=== PATIENT | male | born 1960 | race Caucasian/White ===

== ENCOUNTER 2017-02-13 11:33 | Emergency (ER) | payer BC ==
--- NOTE | 2017-02-13 12:05 | Emergency Department Record ---
History of Present Illness - General Chief complaint: Swelling of legs Stated complaint: SWELLING IN LEGS Time Seen by Provider: 02/13/17 11:36 Source: Patient Mode of Arrival: Ambulatory Limitations: No limitations - History of Present Illness Initial comments: 57 yo male presents to ED with a CC of progressively worsening bilateral lower extremity swelling from ankle to mid-lower leg. Patient denies history of previous symptoms, and denies history of DVT/CHF. Patient denies calf pain or difficulty breathing/chest pain symptoms. Patient reports history of HTN, denies other heart or lung problems. 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 MD Complaint: Extremity swelling Onset/Timin -: Week(s) Location: Bilateral, Ankle, Lower Leg History of Same: No Severity scale (1-10): 8 Quality: Aching Consistency: Constant Worsens with: Exertion, Weight bearing - Related Data Previous Rx's Medication Instructions Recorded Furosemide [Lasix] 20 mg PO DAILY #10 tablet 02/13/17 Allergies Allergy/AdvReac Type Severity Reaction Status Date / Time acetaminophen AdvReac NAUSEA Verified 02/13/17 11:47 [From Darvocet-N] meperidine [From Demerol] AdvReac NAUSEA Verified 02/13/17 11:47 propoxyphene AdvReac NAUSEA Verified 02/13/17 11:47 [From Darvocet-N] Travel Screening - Travel/Exposure Within Last 30 Days Have you traveled within the last 30 days?: Yes Location Detail:: [place] - Travel/Exposure Within Last Year Have you traveled outside the [place] in the last year?: No - Additonal Travel Details Have you been exposed to anyone with a communicable illness?: No - Travel Symptoms Symptom Screening: None Review of Systems Constitutional: Denies: Chills, Fever, Malaise, Night sweats Eyes: Denies: Eye discharge, Eye pain ENT: Denies: Congestion, Ear pain, Epistaxis Respiratory: Denies: Cough, Dyspnea Cardiovascular: Reports: Edema. Denies: Chest pain, Dyspnea on exertion Endocrine: Denies: Fatigue, Heat or cold intolerance Gastrointestinal: Denies: Abdominal pain, Nausea, Vomiting Musculoskeletal: Denies: Arthralgia, Back pain, Gout, Joint swelling Skin: Denies: Bruising, Change in color Neurological: Denies: Abnormal gait, Confusion, Headache, Seizure Psychiatric: Denies: Anxiety Hematological/Lymphatic: Denies: Anemia, Blood Clots Past Medical History - SOCIAL HISTORY Smoking Status: Former smoker Alcohol Use: Occassional Drug Use: None - RESPIRATORY Hx Respiratory Disorders: No - CARDIOVASCULAR Hx Cardio Disorders: No - NEURO Hx Neuro Disorders: No - GI Hx GI Disorders: Yes Hx Diverticulitis: Yes - Hx Genitourinary Disorders: Yes Hx Kidney Stones: Yes Hx Prostate Problems: Yes (removed) - ENDOCRINE Hx Endocrine Disorders: No - MUSCULOSKELETAL Hx Musculoskeletal Disorders: Yes Hx Arthritis: Yes - PSYCH Hx Psych Problems: No - HEMATOLOGY/ONCOLOGY Hx Hematology/Oncology Disorders: Yes Hx Cancer: Yes (prostate) Hx Chemotherapy: No Hx Radiation Therapy: No Family Medical History Any Significant Family History?: No Physical Exam - General General Appearance: Alert, Oriented x3, Cooperative, No acute distress Limitations: No limitations - Head Head exam: Atraumatic, Normocephalic, Normal inspection Head exam detail: negative: Abrasion, Contusion, Jung's sign, General tenderness, Hematoma, Laceration - Eye Eye exam: Normal appearance. negative: Conjunctival injection, Periorbital swelling, Periorbital tenderness, Scleral icterus - ENT Ear exam: negative: Auricular hematoma, Auricular trauma Nasal Exam: negative: Active bleeding, Discharge, Dried blood, Foreign body Mouth exam: negative: Drooling, Laceration, Muffled voice, Tongue elevation - Neck Neck exam: Normal inspection. negative: Meningismus, Tenderness - Respiratory Respiratory exam: Normal lung sounds bilaterally. negative: Rales, Respiratory distress, Rhonchi, Stridor - Cardiovascular Cardiovascular Exam: Regular rate, Normal rhythm, Normal heart sounds - GI/Abdominal GI/Abdominal exam: Soft. negative: Rebound, Rigid, Tenderness - Rectal Rectal exam: Deferred - exam: Deferred - Extremities Extremities exam: Normal inspection, Pedal edema, Other (Mild TTP to the anterior lower extremities due to edema). negative: Calf tenderness, Tenderness - Back Back exam: Denies: CVA tenderness (R), CVA tenderness (L) - Neurological Neurological exam: Alert, Normal gait, Oriented X3 - Psychiatric Psychiatric exam: Normal affect, Normal mood - Skin Skin exam: Normal color. negative: Abrasion Type of lesion: negative: abrasion Course Vital Signs 02/13/17 11:36 Temperature 99.3 F Pulse Rate 100 H Respiratory 16 Rate Blood Pressure 161/83 Pulse Ox 96 - Reevaluation(s) Reevaluation #1: 02/13/17 12:03 Patient seen and examined, no clinical evidence for DVT. Will evaluate for possible CHF vs. renal impairment and reassess. Reevaluation #2: 02/13/17 12:18 EKG: NSR 91 Normal axis, normal intervals T wave inversions V3-V6, nonspecific ST-T waves II, III, AVF Reevaluation #3: 02/13/17 12:43 Labs reviewed and are grossly unremarkable for an acute process. Discussed treatment options with the patient including a low-dose of Lasix for his peripheral edema, will prescribe 10 days worth of medication with instructions for follow-up with his PCP in 5-7 days. Patient appears stable for discharge at this time. Medical Decision Making - Lab Data Result diagrams: 02/13/17 12:12 02/13/17 12:12 Disposition Disposition: Discharge Clinical Impression: Peripheral edema Disposition: Home, Self-Care Condition: (2) Stable Instructions: Leg Edema (ED) Additional Instructions: Return to ED if your symptoms worsen or if you have any concerns. Lasix as directed. Follow-up with your family doctor in 5-7 days as directed. Prescriptions: Furosemide [Lasix] 20 mg PO DAILY #10 tablet Forms: Patient Portal Access Time of Disposition: 12:47
[2017-02-13 12:22] LABS: BASO % 0.2 % (0-6); EOS % 1.2 % (0-6); GRAN % 76.7 % (47-80); HEMATOCRIT 44.9 % (42.0-52.0); HEMOGLOBIN 14.6 gm/dl (14.0-18.0); LYMPH % 10.8 % (16-45); MEAN CELL VOLUME 87.9 fl (81-97); MEAN CORPUSCULAR HEMOGLOBIN 28.6 pg (27-33); MEAN CORPUSCULAR HGB CONC 32.5 g/dl (32-36); MEAN PLATELET VOLUME 10.9 fl (7.4-10.4); MONO % 11.1 % (0-9); PLATELET COUNT 225 K/uL (130-400); RED BLOOD COUNT 5.11 M/uL (4.40-5.70); RED CELL DISTRIBUTION WIDTH 14.6 % (11.5-14.5); WHITE BLOOD COUNT W/O DIFF 10.5 K/uL (4.2-12.2)
[2017-02-13 12:31] LABS: ALB/GLOB RATIO 1.5 (1.1-1.8); ALBUMIN 4.4 gm/dL (3.5-5.0); ALKALINE PHOSPHATASE 90 U/L (38-126); ALT/SGPT 31 U/L (21-72); ANION GAP 6.4 (7-16); AST/SGOT 21 U/L (17-59); BILIRUBIN,TOTAL 0.84 mg/dL (0.2-1.3); BLOOD UREA NITROGEN 21 mg/dL (9-20); CARBON DIOXIDE 24.6 mmol/L (22-30); CREATININE 0.8 mg/dL (0.66-1.25); EST GLOMERULAR FILTRATION RATE > 60 ml/min; GLUCOSE,RANDOM 107 mg/dL (70-110); TOTAL PROTEIN 7.4 gm/dL (6.3-8.2)
[2017-02-13] MEDS: FUROSEMIDE 20 MG TABLET PO ONE (12:58)
== END 2017-02-13 13:06 | disposition home or self-care (01) ==
LOC: ER 11:33
DX: R60.0 Localized edema (principal); I10 Essential (primary) hypertension; M79.662 Pain in left lower leg; M79.661 Pain in right lower leg; Z87.891 Personal history of nicotine dependence
CPT/HCPCS: 80053; 83880; 85025; 93005; 93010; 99284

== ENCOUNTER 2017-07-27 16:27 | Emergency (ER) | payer BC ==
--- NOTE | 2017-07-27 16:42 | Emergency Department Record ---
History of Present Illness - General Chief Complaint: Abdominal Pain Stated Complaint: ABD PAIN Time Seen by Provider: 07/27/17 16:31 Source: Patient Mode of Arrival: Ambulatory - History of Present Illness Initial Comments: The patient is here due to dark black stools for 2 days associated with R sided abdominal aching. He denies any fever, chills, nausea, or vomiting, but has had 6-7 black stools daily for the last 2 days. The patient has had Diverticulitis with similar pain but never the black stools. He has been taking Ibuprofen daily for the last 5 months due to a chronic knee condition. MD Complaint: Abdominal pain Onset/Timin -: Days(s) Location: RUQ, RLQ Radiation: None Migration to: No migration Quality: Aching Consistency: Constant Improves With: Nothing Worsens With: Nothing Associated Symptoms: Chills, Fever, Melena, Vomiting - Related Data Allergies Allergy/AdvReac Type Severity Reaction Status Date / Time acetaminophen AdvReac NAUSEA Verified 07/27/17 16:33 [From Darvocet-N] meperidine [From Demerol] AdvReac NAUSEA Verified 07/27/17 16:33 propoxyphene AdvReac NAUSEA Verified 07/27/17 16:33 [From Darvocet-N] Travel Screening - Travel/Exposure Within Last 30 Days Have you traveled within the last 30 days?: No Review of Systems Constitutional: Denies: Chills, Fever Eyes: Denies: Eye discharge ENT: Denies: Congestion Respiratory: Denies: Cough, Dyspnea Past Medical History - SOCIAL HISTORY Smoking Status: Former smoker Alcohol Use: Rare Drug Use: None - RESPIRATORY Hx Respiratory Disorders: No - CARDIOVASCULAR Hx Cardio Disorders: Yes Hx Edema: Yes Hx Hypertension: Yes - NEURO Hx Neuro Disorders: No - GI Hx GI Disorders: Yes Hx Diverticulitis: Yes - Hx Genitourinary Disorders: Yes Hx Kidney Stones: Yes Hx Prostate Problems: Yes (removed) - ENDOCRINE Hx Endocrine Disorders: No - MUSCULOSKELETAL Hx Musculoskeletal Disorders: Yes Hx Arthritis: Yes - PSYCH Hx Psych Problems: No - HEMATOLOGY/ONCOLOGY Hx Hematology/Oncology Disorders: Yes Hx Cancer: Yes (prostate) Hx Chemotherapy: No Hx Radiation Therapy: No Family Medical History Any Significant Family History?: No Physical Exam - General General Appearance: Alert, Oriented x3, Cooperative, No acute distress - Head Head exam: Atraumatic, Normocephalic, Normal inspection - Eye Eye exam: Normal appearance, PERRL - ENT Throat exam: Normal inspection. negative: Tonsillar erythema, Tonsillar exudate - Neck Neck exam: Normal inspection, Full ROM. negative: Tenderness - Respiratory Respiratory exam: Normal lung sounds bilaterally. negative: Respiratory distress - Cardiovascular Cardiovascular Exam: Regular rate, Normal rhythm, Normal heart sounds - GI/Abdominal GI/Abdominal exam: Soft, Normal bowel sounds. negative: Distended, Rebound, Rigid, Tenderness - Rectal Rectal exam: Black stool, Heme (+) stool - Extremities Extremities exam: Normal inspection, Full ROM, Normal capillary refill. negative: Tenderness - Neurological Neurological exam: Alert. negative: Motor sensory deficit Course Vital Signs 07/27/17 16:36 Temperature 99.3 F Pulse Rate 109 H Respiratory 20 Rate Blood Pressure 141/93 Pulse Ox 98 - Reevaluation(s) Reevaluation #1: The patient is doing very well at this time. He denies any new pain or discomfort. I did explain to him that I feel that he has an UGI bleed and will need to be transferred to a larger hospital. The patient would like to go to [facility] so we will make the arrangements. 07/27/17 17:58 Reevaluation #2: The patient is doing very well at this time. He is very hemodynamically stable. I did discuss the case with Dr. Bustamante at [facility] and he does accept the patient to the hospital. I did offer the patient an ambulance ride but he is refusing. He would like to drive. 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 07/27/17 18:51 Medical Decision Making - Data Complexity MDM Data: Labs Ordered and/or Reviewed, X-Ray Ordered and/or Reviewed - Lab Data Result diagrams: 07/27/17 16:55 07/27/17 16:55 - Radiology Data Radiology results: Report reviewed (Abd CT: Colonic diverticulosis but no diverticulitis. Normal appendix.) Disposition Disposition: Transfer Clinical Impression: Upper GI hemorrhage Disposition: Acute Care Hospital Transfer Transfer To: [facility] Reason For Transfer: Gi Bleed. Accepting Physician: Dianna Time Discussed w/Accepting Physician: 18:54 Condition: (2) Stable Instructions: Gastrointestinal Bleeding (ED) Additional Instructions: Please drive directly over to [facility] for admission. Forms: Patient Portal Access Time of Disposition: 18:15 Quality - Quality Measures Quality Measures: N/A - Blood Pressure Screening View Details: Yes Does Patient Have Any of the Following: No Blood Pressure Classification: Hypertensive Reading Systolic Measurement: 141 Diastolic Measurement: 93 Screening for High Blood Pressure: < Pre-Hypertensive BP, F/U Documented > [ [id number]] Pre-Hypertensive Follow-up Interventions: Referral to alternative/primary care provider.
[2017-07-27 17:07] LABS: BASO % 0.3 % (0-6); EOS % 0.5 % (0-6); GRAN % 61.5 % (47-80); HEMATOCRIT 33.6 % (42.0-52.0); HEMOGLOBIN 10.7 gm/dl (14.0-18.0); LYMPH % 28.1 % (16-45); MEAN CELL VOLUME 84.8 fl (81-97); MEAN CORPUSCULAR HGB CONC 31.8 g/dl (32-36); MEAN PLATELET VOLUME 10.5 fl (7.4-10.4); MONO % 9.6 % (0-9); PLATELET COUNT 318 K/uL (130-400); RED BLOOD COUNT 3.96 M/uL (4.40-5.70); RED CELL DISTRIBUTION WIDTH 14.9 % (11.5-14.5); URINE APPEARANCE SL CLOUDY; URINE BILIRUBIN NEGATIVE (NEGATIVE); URINE BLOOD NEGATIVE (NEGATIVE); URINE COLOR YELLOW; URINE GLUCOSE (UA) NEGATIVE (NEGATIVE); URINE KETONE NEGATIVE (NEGATIVE); URINE LEUKOCYTE ESTERASE NEGATIVE (NEGATIVE); URINE NITRITE NEGATIVE (NEGATIVE); URINE PROTEIN NEGATIVE (NEGATIVE); URINE UROBILINOGEN 0.2 E.U./dL (0.20 - 1.00); WHITE BLOOD COUNT W/O DIFF 14.8 K/uL (4.2-12.2)
[2017-07-27 17:20] LABS: INR 0.98; PARTIAL THROMBOPLASTIN TIME 23.7 SECONDS (24.5-39.1); PROTHROMBIN TIME (PATIENT) 10.6 SECONDS (9.5-12.1)
[2017-07-27 17:23] LABS: ALBUMIN 4.2 g/dL (4.0-5.0); ALKALINE PHOSPHATASE 66 U/L (40-129); ALT/SGPT 15 U/L (<41); AST/SGOT 12 U/L (10.0-50.0); BLOOD UREA NITROGEN 32 mg/dL (6-20); CREATININE 0.7 mg/dL (0.7-1.2); EST GLOMERULAR FILTRATION RATE > 60 mL/min; GLUCOSE,RANDOM 113 mg/dL (74-109); LIPASE 36 U/L (13-60); TOTAL PROTEIN 6.9 g/dL (6.6-8.7)
[2017-07-27 17:27] LABS: BILIRUBIN,DIRECT < 0.2 mg/dL (0-0.3)
[2017-07-27] MEDS: SODIUM CHLORIDE 0.9% 500 ML IV ONE (17:39)
[2017-07-27] MEDS: PANTOPRAZOLE SODIUM IV 40 MG VIAL IVP ONE (17:39)
[2017-07-27] MEDS: ONDANSETRON HCL IV 4 MG/2 ML VIAL IVP ONE (18:55)
[2017-07-27] MEDS: MORPHINE SULFATE 5 MG/ML PFS IVP ONE (18:55)
--- NOTE | 2017-07-29 10:24 | CT SCAN REPORT ---
EXAM: CT SCAN ABDOMEN/PELVIS WO CONTRAST HISTORY: HEMATOCHEZIA. TECHNIQUE: Sequential axial images were obtained from the diaphragms through the ischiorectal fossa without intravenous or oral contrast administration. FINDINGS: There is a calcified granuloma in the right lung base. The non- opacified liver, gallbladder, pancreas, and spleen appear normal. The adrenal glands appear normal. There are no CT findings suggestive of obstructive uropathy. There is a small nonobstructing calculus in the right kidney. The small bowel appears normal. The appendix is visualized and appears normal. There is colonic diverticulosis without evidence of diverticulitis. There is mild atheromatous change of the abdominal aorta. There is a fat-containing left inguinal hernia. There is degenerative change of the lumbar spine. IMPRESSION: 1. NO CT FINDINGS SUGGESTIVE OF OBSTRUCTIVE UROPATHY. THE APPENDIX IS VISUALIZED AND APPEARS NORMAL. 2. FAT-CONTAINING LEFT INGUINAL HERNIA. 3. COLONIC DIVERTICULOSIS WITHOUT EVIDENCE OF DIVERTICULITIS. JOB NUMBER: [id number] MTDD
== END 2017-07-27 19:57 | disposition short-term general hospital (02) ==
LOC: ER 16:27
DX: K92.1 Melena (principal); R11.11 Vomiting without nausea; R10.84 Generalized abdominal pain; I10 Essential (primary) hypertension; Z87.891 Personal history of nicotine dependence
CPT/HCPCS: 99285 ×2; 96374; 96375; 96361; 83690; 85025; 85730; 85610; 80076; 80048; 81003; 74176; J2405; J2270; C9113

== ENCOUNTER 2017-08-30 05:51 | Inpatient (IN) | payer BC ==
[2017-08-30] MEDS ORDERED: MECLIZINE 25 MG TABLET PO ONE (06:00)
[2017-08-30] MEDS ORDERED: FAMOTIDINE 20MG TABLET PO ONE (06:00)
[2017-08-30] MEDS ORDERED: CEFAZOLIN 2 Gram 2 GM/50 ML BAG IVPB ONE (06:00)
[2017-08-30] MEDS ORDERED: ACETAMINOPHEN 1,000 MG/100 ML BTL IV ONE (06:00)
[2017-08-30] MEDS ORDERED: METOCLOPRAMIDE 10 MG TABLET PO ONE (06:00)
[2017-08-30] MEDS ORDERED: MAGNESIUM HYDROXIDE 30 ML UDC PO PRN (10:30)
[2017-08-30] MEDS ORDERED: ZOLPIDEM TARTRATE 5 MG TABLET PO PRN (10:30)
[2017-08-30] MEDS ORDERED: ONDANSETRON HCL IV 4 MG/2 ML VIAL IVP PRN (10:30)
[2017-08-30] MEDS ORDERED: SENNOSIDES/DOCUSATE SODIUM UD CAPSULE PO PRN (10:30)
[2017-08-30] MEDS ORDERED: METOCLOPRAMIDE HCL 10 MG/2 ML VIAL IVP PRN (10:30)
[2017-08-30] MEDS ORDERED: AL HYDROX/MAG HYDROX 30ML UD PO PRN (10:30)
[2017-08-30] MEDS ORDERED: DIPHENHYDRAMINE HCL 25 MG CAPSULE PO PRN (10:30)
[2017-08-30] MEDS ORDERED: TRAMADOL HCL 50 MG TABLET PO PRN (10:30)
[2017-08-30] MEDS ORDERED: RINGERS SOLUTION,LACTATED 1,000 ML IV PRN (11:11)
[2017-08-30] MEDS ORDERED: TRANEXAMIC ACID 1,000 MG in 0.9 % SODIUM CHLORIDE 100ML 100 ML IVPB ONE (12:00)
[2017-08-30] MEDS: TRAMADOL HCL 50 MG TABLET PO PRN ×2 (12:22→23:55)
--- NOTE | 2017-08-30 13:00 | Operative Note ---
DATE OF SURGERY: 08/30/2017 Surgeon: Arcadio Lutz DO PREOPERATIVE DIAGNOSIS: Secondary osteoarthritis of the left knee. POSTOPERATIVE DIAGNOSIS: Secondary osteoarthritis of the left knee. OPERATION: Left total knee arthroplasty. DESCRIPTION OF PROCEDURE: This 57-year-old male was taken to the operating room and placed in the supine position on the operating room table. A spinal anesthetic was administered. The left lower extremity was elevated. It was prepped with Hibiclens and draped in the usual sterile fashion. Exsanguinated and the tourniquet inflated to 300 mmHg. All scrub personnel wore personal isolation suits. An anterior longitudinal midline incision was made followed by a medial parapatellar arthrotomy incision. An intracondylar drill hole was made for the intramedullary alignment reyna and a 6-degree valgus 9 mm cut was made in the distal femur. Sizing jig was affixed a size between a 70 and a 72. We elected to go with a size 70 which was seen to be the appropriate size. The 4-in-1 cutting block was pinned in 3 degrees of external rotation. The appropriate cuts were made. We did not encounter the metallic hardware in the femur. Subsequently, we directed our attention to the proximal tibia, and an extramedullary alignment guide was used to cut the proximal tibia referencing a 10 mm cut off the lateral tibial plateau. However, this was seen to be significantly short of where we needed to be in terms of the amount of bone removal. We ended up taking an additional 4 mm. This gave us the appropriate size and once the appropriate rotation had been assured, a 3-degree posterior slope cut was made and the wafer of bone was removed. Remnants of the menisci and osteophytes were removed from the posterior aspect of the joint. We placed a metallic device down the hole where we could see that the ACL graft had been placed. The fatty tissue was dug out of this hole to healthy appearing bone and we really could not see the screw. Subsequently, the sizing jig was affixed and the center punch was used. This was hit very lightly for fear of encountering the screw but it went down very easily and the screw could be seen at the bottom of the punched tibia. We felt that it was not necessary to remove this screw, and the wound was copiously irrigated with pulse lavage, lactated Ringer's solution and all debris removed. Exparel was injected into the posterior, medial, and lateral corners of the joint. The patella was cut and restored to anatomic height with a 37 x 10 mm patella, and the remainder of the trial components were also inserted, and an 11 mm bearing was seen to be the appropriate size. This gave us good stability throughout the range of motion. All trial components were then removed and the wound copiously irrigated with lactated Ringer's solution. All bony surfaces were dried. All components were cemented and excess cement was removed after the insertion of each component. Initially the tibial baseplate was cemented into place with no difficulties followed by the insertion of the tibial bearing. The femur was then cemented and subsequently the patella. Once the cement had hardened, the knee was again taken through range of motion and felt to be stable. The remainder of the Exparel was injected into the periosteum and joint capsule, the proximal tibia and distal femur. A drain was placed through a separate stab incision, and the arthrotomy incision was closed with a #2 Vicryl. The subcutaneous tissue was closed with 0 Vicryl and the skin was stapled. Sterile dressings applied with a Polar pack. The patient was taken to the recovery room in satisfactory condition. GROSS PATHOLOGY: This patient demonstrated advanced medial compartment osteoarthritis with some bone loss noted on the medial tibial plateau with full-thickness articular cartilage loss on the patella. There was also a loose joint body encased in synovium on the medial side of the joint in the gutter. Final components inserted were a [employer] size 70 cruciate retaining femur, a 75 mm tibia, 11 mm anterior stabilized D1 bearing, and a 27 x 10 mm patella was used. [place]AG
[2017-08-30] MEDS: ACETAMINOPHEN 1,000 MG/100 ML BTL IV SCH ×2 (13:07→18:32)
--- NOTE | 2017-08-30 13:58 | Rehab Evaluation ---
Patient Information - Patient Information Diagnosis: OA left knee Ordered Treatment: PT Evaluate and Treat Status: Initial Evaluation Surgery: Yes (TKA left) Date of Surgery: 08/30/17 Past Medical/Surgical Hx: PAST MEDICAL/SURGICAL HISTORY Past Surgical History prostate Bl knee surgery tonsils wisdom teeth kidney stones-lipotrypsy right knee replacement PMH - Respiratory Hx Respiratory Disorders No PMH - Cardiovascular Hx Cardiovascular Disorders Yes Hx Edema Yes Hx Hypertension Yes Exercise Tolerance Good PMH - Neuro Hx Neurological Disorders No PMH - GI Hx Gastrointestinal Disorders Yes Hx Diverticulitis Yes Hx Ulcer Yes: 3 weeks ago bleeding PMH - Hx Genitourinary Disorders Yes Hx Bladder Problem Yes: some leaking Hx Kidney Stones Yes Hx Prostate Problems Yes: removed PMH - Endocrine Hx Endocrine Disorders No Hx Diabetes No Hx Thyroid Disease No PMH - Musculoskeletal Hx Musculoskeletal Disorders Yes Hx Arthritis Yes Comment: prev rt knee replacement PMH - Psych Hx Psychiatric Problems No PMH - Hematology/Oncology Hx Hematology/Oncology Yes Disorders Hx Cancer Yes: prostate Hx Chemotherapy No Hx Radiation Therapy No Social History: Detail (Lives in house with two fairly high steps to get into house, no rail. Has good bathroom set-up from previous knee replacement earlier this year. Has four-wheeled walker and should be able to get into shower. Has significant other to help him at home.) Precautions: [place], Fall - Time With Patient Total Time Spent With Patient (Min): 30 Treatment Procedures: Detail (Patient seen in room, still a little woozy and ate some lunch but mostly liquid. Removed cryocuff, compressive stockings, CPM from bed and patient able to help lift leg. Patient able to do some of knee exercises to increase flexibility before sat up. Able to move supine to sit with very little assist with left LE, sat edge of bed for several minutes to clear head then sit to stand with FWW and min assist, WBAT left LE and did weight shift, stepped sideways to head of bed. Able to sit down with verbal cues to slide leg out in front and use bed rail for support. Into bed with min assist with left LE, re-attached cryocuff, CPM, compressive stockings. Left call light close and tray table within reach with drink.) Subjective Information - Subjective Information Per Patient (As above lives in house with two high steps to get into house and last surgery, had to use crutches to get into house.) Objective Data - Pain Pain Present: Yes Pain Scale Used: Numeric (1 - 10) (4/10) - Mental Status Patient Orientation: Oriented x3 - Visual Perception Appears within normal limits for therapeutic activities - ROM Within normal limits (except knee -10 degrees extension, flexion 60 degrees.) - Strength/Tone Within normal limits (Quads 3-/5, hamstrings 4/5, left hip 3+/5) - Coordination Appears within normal limits for therapeutic activities (A little decreased at this time secondary to surgery.) - Bed Mobility Needs Assist (Needs min assist to move supine to sit and sit to supine.) - Transfers Needs Assist (Sit to stand good with FWW, stand to sit WFL, did not move to chair yet or walk yet.) - Balance Balance Sitting: Good Balance Standing: Good - Sensation Deficit (Not fully returned since surgery.) - Gait Detail (Only able to try two to three steps sidestepping at side of bed today secondary to does not have full sensation back yet. Used FWW and able to WBAT left LE.) Therapy Assessment - Therapy Assessment Detail (Patient doing quite well with knee so far, not nauseated this afternoon and able to tolerate being up briefly. Exercises cause a little more discomfort but able to assist.) Patient Education - Patient Education Teaching Topic: Equipment Use, Exercise/Activity Response: Return Demonstration Teaching Method: Demonstration Teaching Recipient: Patient, Significant Other Barriers To Learning: None Problem List - Problem List Physical Therapy Problem List: Detail (1. Decreased functional mobility and gait. 2. Decreased ROM left knee to functional degree. 3. Unable to do stairs yet to get into house.) Goals - Goals Physical Therapy Goals: Patient will be able to ambulate community distances, mobilize self into and out of bed, step up and down three steps with appropriate assistive device and assistance, increase ROM of knee to more functional before discharge home with significant other. Prognosis - Prognosis Good (Should do well as gets meds under control for pain and practices mobility , gait and stairs.) Plan - Plan Physical Therapy Plan: Continue PT BID tomorrow to prepare for going home with exercises, gait training, stairs with appropriate assistive device so able to get up stairs at home before discharge day after surgery or if needed, next am.
[2017-08-30] MEDS ORDERED: BUPIVACAINE 0.75% W/EPI MPF 30ML VIAL IVP ONE (15:00)
[2017-08-30] MEDS ORDERED: TRANEXAMIC ACID 1,000 MG/10 ML ML IV ONE (15:00)
[2017-08-30] MEDS ORDERED: BUPIVACAINE LIPOSOME 266MG/20ML VIAL IV ONE (15:00)
[2017-08-30] MEDS ORDERED: FENTANYL PF 100MCG/2ML VIAL IV ONE (15:22)
[2017-08-30] MEDS ORDERED: *PACU ONLY* KETAMINE HCL 10 MG/ML (20ML) VIAL IV ONE (15:22)
[2017-08-30] MEDS ORDERED: MIDAZOLAM HCL 2MG/2ML VIAL IV ONE (15:22)
[2017-08-30] MEDS ORDERED: PROPOFOL 10 MG/ML VIAL IV ONE (15:22)
[2017-08-30] MEDS ORDERED: HYDROMORPHONE HCL 2 MG/ML VIAL IV ONE (15:22)
[2017-08-30] MEDS: CEFAZOLIN 2 Gram 2 GM/50 ML BAG IVPB SCH ×2 (15:58→23:55)
[2017-08-30] MEDS: OXYCODONE HCL 5 MG TABLET PO PRN ×2 (17:13→21:17)
[2017-08-30] MEDS: ASPIRIN 325 MG TAB ENTERIC-COATED PO SCH (21:18)
[2017-08-31] MEDS: OXYCODONE HCL 5 MG TABLET PO PRN ×3 (01:14→09:28)
[2017-08-31] MEDS: ACETAMINOPHEN 1,000 MG/100 ML BTL IV SCH (01:15)
[2017-08-31] MEDS: RINGERS SOLUTION,LACTATED 1,000 ML IV SCH ×2 (01:51→03:12)
[2017-08-31] MEDS: HYDROMORPHONE HCL 1 MG/ML CPJ IVP PRN ×2 (05:57→06:55)
[2017-08-31 06:57] LABS: HEMATOCRIT 27.8 % (42.0-52.0); HEMOGLOBIN 8.2 gm/dl (14.0-18.0); MEAN CORPUSCULAR HGB CONC 29.5 g/dl (32-36); MEAN PLATELET VOLUME 10.4 fl (7.4-10.4); PLATELET COUNT 338 K/uL (130-400); RED BLOOD COUNT 3.35 M/uL (4.40-5.70); RED CELL DISTRIBUTION WIDTH 15.6 % (11.5-14.5); WHITE BLOOD COUNT W/O DIFF 13.4 K/uL (4.2-12.2)
[2017-08-31] MEDS: CEFAZOLIN 2 Gram 2 GM/50 ML BAG IVPB SCH (06:58)
[2017-08-31 07:02] LABS: MEAN CORPUSCULAR HEMOGLOBIN 24.4 pg (27-33)
[2017-08-31] MEDS: ASPIRIN 325 MG TAB ENTERIC-COATED PO SCH (09:29)
[2017-08-31] MEDS ORDERED: FUROSEMIDE 20 MG TABLET PO SCH (10:00)
[2017-08-31] MEDS ORDERED: LISINOPRIL 20 MG TABLET PO SCH (10:00)
[2017-08-31] MEDS ORDERED: OXYCODONE/APAP 7.5MG/325MG TABLET PO PRN (10:30)
[2017-08-31] MEDS ORDERED: ACETAMINOPHEN 325 MG TAB PO PRN (10:30)
[2017-08-31] MEDS ORDERED: HYDROCODONE/APAP 7.5/325MG TABLET PO PRN (10:30)
--- NOTE | 2017-08-31 10:49 | Physical Therapy Tx Note ---
Physical Therapy Tx Note - Treatment Note Tolerated: Good (Patient had a horrible night: pain and drain leaked, CPM hurting. Feeling a little better now with pain meds but pain level still 5/10. Willing to get up and walk but not sure about steps yet. Able to ambulate about 70 feet to nurses station and back to room with standing rest breaks.) Total Time Spent With Patient: 30 Physical Therapy Tx Note: Detail (Patient seen in room, sitting up in chair so did knee exercises sitting with hip lift and knee bending, straightening, ankle pumps then sit to stand with FWW, CGA then ambulated into wang to nurses' station (about 70 feet) then back to room WBAT left LE. Into bed with some assist with left LE. Replaced patient in CPM, cryocuff on knee. Did not replace compressive stockings since OT coming to work with patient soon. Call light close, tray table close and refreshed water cup.) Physical Therapy Problem List: Detail (1. Decreased functional mobility and gait. 2. Decreased ROM left knee to functional degree. 3. Unable to do stairs yet to get into house.) Physical Therapy Goals: Patient will be able to ambulate community distances, mobilize self into and out of bed, step up and down three steps with appropriate assistive device and assistance, increase ROM of knee to more functional before discharge home with significant other. Prognosis: Good (Doing a little better this am with mobility and gait but pain higher and not able to lift leg in SLR yet. Will try crutches this afternoon for stairs.) Physical Therapy Plan: Continue PT BID tomorrow to prepare for going home with exercises, gait training, stairs with appropriate assistive device so able to get up stairs at home before discharge day after surgery or if needed, next am.
--- NOTE | 2017-08-31 12:31 | Rehab Evaluation ---
Patient Information - Patient Information Diagnosis: OA left knee Ordered Treatment: OT Evaluate and Treat Status: Initial Evaluation Surgery: Yes (TKA left) Date of Surgery: 08/30/17 Past Medical/Surgical Hx: PAST MEDICAL/SURGICAL HISTORY Past Surgical History prostate Bl knee surgery tonsils wisdom teeth kidney stones-lipotrypsy right knee replacement PMH - Respiratory Hx Respiratory Disorders No PMH - Cardiovascular Hx Cardiovascular Disorders Yes Hx Edema Yes Hx Hypertension Yes Exercise Tolerance Good PMH - Neuro Hx Neurological Disorders No PMH - GI Hx Gastrointestinal Disorders Yes Hx Diverticulitis Yes Hx Ulcer Yes: 3 weeks ago bleeding PMH - Hx Genitourinary Disorders Yes Hx Bladder Problem Yes: some leaking Hx Kidney Stones Yes Hx Prostate Problems Yes: removed PMH - Endocrine Hx Endocrine Disorders No Hx Diabetes No Hx Thyroid Disease No PMH - Musculoskeletal Hx Musculoskeletal Disorders Yes Hx Arthritis Yes Comment: prev rt knee replacement PMH - Psych Hx Psychiatric Problems No PMH - Hematology/Oncology Hx Hematology/Oncology Yes Disorders Hx Cancer Yes: prostate Hx Chemotherapy No Hx Radiation Therapy No Premorbid Status: Detail (Pt. was independent with all mobility and I/ADL's prior to sx.) Social History: Detail (Lives in single story house with two fairly high steps to get into house, no rail. Has good bathroom set-up from previous knee replacement earlier this year, including raised toilet seat, walk-in shower with built in seat, HH shower head, and grab bars. Pt. 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 required min assist to lift LLE out of bed to floor, & to lift back into bed. Pt. was educ. on adaptive strategies (i.e. use other foot to assist, but pt. was unable d/t prior R knee sx; and using sheet as a leg lift device).) - Transfers Needs Assist (Pt. required min assist sit<>stand t/f from standard surface chair. Pt. was able to sit<>stand ind. EOB to walker after bed was raised. Educ. was provided to use cushions or chair raisers at home for low surfaces.) - Balance Balance Sitting: Good Balance Standing: Fair - Sensation Intact (BUE) - ADL's/IADL's Detail (Educ. was provided on adaptive dressing techniques. Pt. stated he was aware of AE such as real estate listing consultant and sock aid, and knew where/how to obtain. Pt. dressed with min A to thread LLE in elastic waist shorts & boxers, and min A sit <>stand transfers from standard chair. Pt. would benefit from using real estate listing consultant to maximize independence with dressing LLE. Educ. was provided on applying real estate listing consultant to dressing techniques, and pt. voiced understanding. Pt. has decreased activity tolerance, with high pain, requiring multiple rest breaks and extra time.) Therapy Assessment - Therapy Assessment Detail (Pt. voiced concern for being able to perform self care activities at home independently when significant other is unavailable to assist, but doesn't think insurance will cover home care assistance. Pt. stated he will discuss with director social welfare. In-pt. OT services not recommended at this time, but pt. may benefit from caregiver assistance at home initially for self-care. Pt. has knowledge of AE and adaptive strategies, and a good home set-up from previous sx.) Patient Education - Patient Education Teaching Topic: Equipment Use Response: Verbalize Understanding Teaching Method: Discussion Teaching Recipient: Patient, Family (significant other) Barriers To Learning: None Problem List - Problem List Physical Therapy Problem List: Detail (1. Decreased functional mobility and gait. 2. Decreased ROM left knee to functional degree. 3. Unable to do stairs yet to get into house.) Goals - Goals Physical Therapy Goals: Patient will be able to ambulate community distances, mobilize self into and out of bed, step up and down three steps with appropriate assistive device and assistance, increase ROM of knee to more functional before discharge home with significant other. Prognosis - Prognosis Good Plan - Plan Physical Therapy Plan: Continue PT BID tomorrow to prepare for going home with exercises, gait training, stairs with appropriate assistive device so able to get up stairs at home before discharge day after surgery or if needed, next am. Occupational Therapy Plan: D/C from in-pt. OT services at this time. Pt. was educ. to call rehab dept. if Q's/concerns when arrive home.
[2017-08-31] MEDS: TRAMADOL HCL 50 MG TABLET PO PRN (13:53)
--- NOTE | 2017-08-31 14:10 | Discharge Summary ---
DATE OF ADMISSION: 08/30/2017 DATE OF DISCHARGE: 08/31/2017 ADMITTING DIAGNOSIS: Osteoarthritis of the left knee. DISCHARGE DIAGNOSIS: Osteoarthritis of the left knee. OPERATIVE PROCEDURE: Elective left total knee arthroplasty. DESCRIPTION: This 57-year-old male was admitted to the hospital for elective left total knee arthroplasty and tolerated the operative procedure well. The drain was removed the first postoperative day and he progressed well with physical therapy. He did not show any signs of complication from the surgery and was ready for discharge the first postoperative day. The patient will be discharged with instructions to wear his GABY hose during the day and remove them at night. He will have outpatient physical therapy previously scheduled and aspirin 325 mg daily for 2 weeks. He was given a prescription for Percocet 7.5/325, #80, 1-2 every 6 hours as necessary for pain and for Ultram 50 mg, #60, 1-2 every 6 hours as necessary for pain with 2 refills. He will follow up in the office in 2 weeks. Routine wound care instructions were given. His lluvia will be removed when he is seen intact he office in 2 weeks. CHIRAG
--- NOTE | 2017-08-31 14:43 | Physical Therapy Tx Note ---
Physical Therapy Tx Note - Treatment Note Tolerated: Good (Patient doing better this afternoon. Some pain but seems to be controlled with pain meds. Able to ambulate with crutches WBAT with CGA to stairs then down three steps with crutch and rail, CGA and WBAT then able to pivot around and walked up three steps with crutches both sides with proper weightbearing.) Physical Therapy Tx Note: Detail (Patient seen in room, sitting up in chair so sit to stand independently then ambulated with crutches set for his height about 70 feet to stairs then ambulated down three steps with one crutch and rail , pivoted around and ambulated up three steps with two crutches and lots of encouragement, WBAT left LE. Ambulated again back to room and into bed with only slight assist with left LE. Reviewed exercises and encouraged to continue over weekend until OP PT starts Sunday. Replaced cryocuff on knee to rest until ready to leave for home.) Physical Therapy Problem List: Detail (1. Decreased functional mobility and gait. 2. Decreased ROM left knee to functional degree. 3. Unable to do stairs yet to get into house.) Physical Therapy Goals: Patient will be able to ambulate community distances, mobilize self into and out of bed, step up and down three steps with appropriate assistive device and assistance, increase ROM of knee to more functional before discharge home with significant other. Prognosis: Good (Patient doing very well and should transition well to home with help of significant others. Reviewed possible ways to get into house and has more than one option so may try through garage: four steps but not as high and has already used them previously with other knee operation. Patient has met all goals to be discharged home from PT point of view.) Physical Therapy Plan: Continue PT BID tomorrow to prepare for going home with exercises, gait training, stairs with appropriate assistive device so able to get up stairs at home before discharge day after surgery or if needed, next am.
== END 2017-08-31 16:16 | disposition home or self-care (01) | DRG 470 ==
LOC: MEDSURG 05:51
PROVIDERS: ADMIT Orthopaedic Surgery; ATTEND Orthopaedic Surgery
PROC: 0SRD069 Replacement of Left Knee Joint with Oxidized Zirconium on Polyethylene Synthetic Substitute, Cemented, Open Approach (ICD-10-PCS; principal; 2017-08-30 07:30)
DX: M17.5 Other unilateral secondary osteoarthritis of knee (principal); I10 Essential (primary) hypertension
CPT/HCPCS: 85025; 94761; 97110; 97116; 97165; J1170; J2405; J3490; J7120

== ENCOUNTER 2019-11-26 20:30 | Emergency (ER) | payer BC ==
[2019-11-26 20:46] LABS: ABSOLUTE NEUTROPHIL COUNT 5.96; BASO % 0.6 % (0-6); EOS % 1.8 % (0-6); GRAN % 59.5 % (47-80); HEMOGLOBIN 11.9 gm/dl (14.0-18.0); LYMPH % 28.7 % (16-45); MEAN CELL VOLUME 89.8 fl (81-97); MEAN CORPUSCULAR HEMOGLOBIN 28.1 pg (27-33); MEAN CORPUSCULAR HGB CONC 31.3 g/dl (32-36); MEAN PLATELET VOLUME 10.7 fl (7.4-10.4); MONO % 9.4 % (0-9); PLATELET COUNT 281 K/uL (130-400); RED BLOOD COUNT 4.23 M/uL (4.40-5.70); RED CELL DISTRIBUTION WIDTH 15.1 % (11.5-14.5)
[2019-11-26 21:06] LABS: BLOOD UREA NITROGEN 19 mg/dL (6-20); CREATININE 0.7 mg/dL (0.7-1.2); EST GLOMERULAR FILTRATION RATE > 60 mL/min; TOTAL PROTEIN 7.2 g/dL (6.6-8.7)
[2019-11-26 21:08] LABS: GLUCOSE,RANDOM 113 mg/dL (74-109)
[2019-11-26 21:11] LABS: ALB/GLOB RATIO 1.3 (1.1-1.8); ALBUMIN 4.1 g/dL (4.0-5.0); ALKALINE PHOSPHATASE 65 U/L (40-129); ALT/SGPT 21 U/L (<41); AST/SGOT 15 U/L (10.0-50.0)
--- NOTE | 2019-11-26 21:33 | Emergency Department Record ---
History of Present Illness - General Chief Complaint: Chest Pain Stated Complaint: CP/BLOOD IN STOOL Time Seen by Provider: 11/26/19 20:34 Source: Patient Mode of Arrival: Ambulatory Limitations: No limitations - History of Present Illness Initial Comments: 59 yo male presents with cough for about 3 weeks. He reports he coughed so hard he developed left sided pain. A few days after that he developed bruising. The bruising has resolved. He has treated the pain with ibuprofen. After several days of Ibuprofen he developed black stools. He has stopped the ibuprofen. He is not taking any acid blockers or PPI. He has had ulcers in the past. MD Complaint: Chest pain, Other (Cough, dark stools) -: Week(s) Onset: Other Pain Location: Left chest Pain Radiation: Back Severity scale (1-10): 6 Consistency: Constant Worsens With: Inspiration, Movement Context: Recent illness Treatments Prior to Arrival: Other (Motrin) - Related Data Previous Rx's Medication Instructions Recorded Hydrocodone/APAP 5/325Mg [[place] 1 each PO Q6H #10 tab 11/26/19 5Mg/325Mg] Pantoprazole Sodium [Protonix] 40 mg PO DAILY #30 tablet. 11/26/19 Allergies Allergy/AdvReac Type Severity Reaction Status Date / Time meperidine [From Demerol] AdvReac NAUSEA Verified 11/26/19 20:41 propoxyphene AdvReac NAUSEA Verified 11/26/19 20:41 [From Darvocet-N] Travel/Exposure Screening - Travel/Exposure Within Last 30 Days Have you traveled within the last 30 days?: No - Travel/Exposure Within Last Year Have you traveled outside the [place] in the last year?: No - Additonal Travel/Exposure Details Have you been exposed to anyone with a communicable illness?: No - Travel Symptoms Symptom Screening: None Review of Systems Constitutional: Denies: Chills, Fever, Malaise, Weakness Eyes: Denies: Eye discharge ENT: Denies: Congestion, Dental pain, Epistaxis, Throat pain Respiratory: Reports: Cough. Denies: Dyspnea, Hemoptysis, Stridor, Wheezes Cardiovascular: Reports: Chest pain (hurts to cough). Denies: Edema, Orthopnea Endocrine: Denies: Fatigue Gastrointestinal: Reports: Melena. Denies: Abdominal pain, Diarrhea, Hematemesis, Hematochezia, Nausea, Vomiting Genitourinary: Denies: Dysuria, Frequency, Hematuria Musculoskeletal: Denies: Arthralgia, Back pain, Joint swelling, Myalgia, Neck pain Skin: Denies: Bruising, Change in color, Rash Neurological: Denies: Headache Psychiatric: Denies: Anxiety Hematological/Lymphatic: Denies: Easy bleeding, Easy bruising Past Medical History - SOCIAL HISTORY Smoking Status: Former smoker Alcohol Use: Occasional - RESPIRATORY Hx Respiratory Disorders: No - CARDIOVASCULAR Hx Cardio Disorders: Yes Hx Hypertension: Yes - NEURO Hx Neuro Disorders: No - GI Hx GI Disorders: Yes Hx Diverticulitis: Yes Hx Ulcer: Yes - Hx Genitourinary Disorders: Yes Hx Prostate Problems: Yes (removed) - ENDOCRINE Hx Endocrine Disorders: No Hx Diabetes: No Hx Thyroid Disease: No - MUSCULOSKELETAL Hx Musculoskeletal Disorders: Yes Comment:: prev rt knee replacement - PSYCH Hx Psych Problems: No - HEMATOLOGY/ONCOLOGY Hx Hematology/Oncology Disorders: Yes Hx Cancer: Yes (prostate) Hx Chemotherapy: No Hx Radiation Therapy: No Family Medical History Any Significant Family History?: No Physical Exam - General General Appearance: Alert, Oriented x3, Cooperative, No acute distress Limitations: No limitations - Head Head exam: Atraumatic, Normocephalic, Normal inspection - Eye Eye exam: Normal appearance, PERRL. negative: Conjunctival injection, Scleral icterus - ENT ENT exam: Normal exam, Mucous membranes moist Ear exam: Normal external inspection Nasal Exam: Normal inspection Mouth exam: Normal external inspection - Neck Neck exam: Normal inspection, Tenderness - Respiratory Respiratory exam: Normal lung sounds bilaterally, Chest wall tenderness (tender left lateral lower chest/ribs, normal inspection, no bruising). negative: Accessory muscle use, Prolonged expiratory, Respiratory distress, Rhonchi, Stridor, Wheezes - Cardiovascular Cardiovascular Exam: Regular rate, Normal rhythm, Normal heart sounds - GI/Abdominal GI/Abdominal exam: Soft, Tenderness (tender left upper lateral vs left lower rib margins, otherwise non tender abdomen). negative: Distended, Guarding, Rebound, Rigid - Extremities Extremities exam: Normal inspection - Back Back exam: Reports: CVA tenderness (L), Full ROM, Tenderness. Denies: CVA tenderness (R) - Neurological Neurological exam: Alert, Oriented X3 - Psychiatric Psychiatric exam: Normal affect, Normal mood. 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 The CMP was reviewed. NO acute process The CXR was reviewed. The report was no acute cardiopulmonary disease. 11/26/19 22:[address] scan was reviewed and was negative for acute process. We discussed the results of the tests and questions were answered. The patient is doing well and is comfortable with DC. His Hgb is 11.9 and no signs of active bleeding. We discussed at length reasons to immediately return to the ED as well as close follow up. He was referred to the outpatient GI clinic for follow up The patient will call the PCP for close follow up of this ED visit to review this visit and the tests performed DC vitals were reviewed. The patient was given a copy of the radiology reports to review with their family doctor for follow up He is aware that he has diverticulosis Medical Decision Making - Lab Data Result diagrams: 11/26/19 20:38 11/26/19 20:38 Lab Results 11/26/19 11/26/19 11/26/19 Range/Units 20:38 20:38 20:38 WBC 10.0 (4.2-12.2) K/uL RBC 4.23 L (4.40-5.70) M/uL Hgb 11.9 L (14.0-18.0) gm/dl Hct 38.0 L (42.0-52.0) % MCV 89.8 (81-97) fl MCH 28.1 (27-33) pg MCHC 31.3 L (32-36) g/dl RDW 15.1 H (11.5-14.5) % Plt Count 281 (130-400) K/uL MPV 10.7 H (7.4-10.4) fl Gran % 59.5 (47-80) % Lymphocytes % 28.7 (16-45) % Monocytes % 9.4 H (0-9) % Eosinophils % 1.8 (0-6) % Basophils % 0.6 (0-6) % Absolute Neutrophils 5.96 PT 10.0 (9.5-12.1) SECONDS INR 1.0 APTT 26.0 (24.5-39.1) SECONDS Sodium 138 (136-145) mmol/L Potassium 4.1 (3.4-4.5) mmol/L Chloride 104 (98-107) mmol/L Carbon Dioxide 25.0 (22-29) mmol/L Anion Gap 9.0 (7-16) BUN 19 (6-20) mg/dL Creatinine 0.7 (0.7-1.2) mg/dL Estimated GFR > 60 mL/min Random Glucose 113 H (74-109) mg/dL Calcium 8.8 (8.6-10.0) mg/dL Total Bilirubin 0.20 (0.2-1.0) mg/dL AST 15 (10.0-50.0) U/L ALT 21 (<41) U/L Alkaline Phosphatase 65 (40-129) U/L Total Protein 7.2 (6.6-8.7) g/dL Albumin 4.1 (4.0-5.0) g/dL Globulin 3.1 (1.4-4.8) gm/dL Albumin/Globulin Ratio 1.3 (1.1-1.8) Disposition Disposition: Discharge Clinical Impression: GI bleed Qualifiers: GI bleed type/associated pathology: unspecified gastrointestinal hemorrhage type Qualified Code(s): K92.2 - Gastrointestinal hemorrhage, unspecified Disposition: Home, Self-Care Condition: (1) Good Instructions: Gastrointestinal Bleeding (ED) Additional Instructions: Review this ER visit and the tests performed with Dr Rajput Call your doctor for the next available follow up appointment to recheck your symptoms Return to the ER for a recheck immediately if worse, any new concerns or questions Take the prescriptions provided as directed Prescriptions: Hydrocodone/APAP 5/325Mg [[place] 5Mg/325Mg] 1 each PO Q6H #10 tab Pantoprazole Sodium [Protonix] 40 mg PO DAILY #30 tablet. Referrals: KERON NARANJO [DOCTOR OF OSTEOPATH] - [facility] [Provider Group] Forms: Patient Portal Access Time of Disposition: 22:53 Quality - Quality Measures Quality Measures: N/A - Blood Pressure Screening Does Patient Have Any of the Following: No Blood Pressure Classification: Pre-Hypertensive BP Reading Systolic Measurement: 140 Diastolic Measurement: 85 Screening for High Blood Pressure: < Pre-Hypertensive BP, F/U Documented > [G8950] Pre-Hypertensive Follow-up Interventions: Referral to alternative/primary care provider.
[2019-11-26] MEDS ORDERED: PANTOPRAZOLE SODIUM IV 40 MG VIAL IVP ONE (21:35)
--- NOTE | 2019-11-26 21:38 | RADIOLOGY REPORT ---
EXAMINATION: Two View Chest Radiographs EXAM DATE: 11/26/2019 9:21 PM TECHNIQUE: Frontal and lateral views INDICATION: cough, left side pain COMPARISON: None ENCOUNTER: Not applicable FINDINGS: The heart, mediastinum, and pulmonary vasculature are normal. No lung consolidation or pleural effu sions are present. IMPRESSION: No acute cardiopulmonary disease is present. Dictated by: Trevor Li MD on 11/26/2019 9:34 PM. .
--- NOTE | 2019-11-26 22:45 | CT SCAN REPORT ---
EXAMINATION: CT Abdomen and Pelvis without IV Contrast EXAM DATE: 11/26/2019 10:21 PM TECHNIQUE: Standard protocol CT imaging of the abdomen and pelvis was performed without intravenous c ontrast. INDICATION: left flank pain COMPARISON: None ENCOUNTER: Not applicable CT ABDOMEN AND PELVIS FINDINGS: Lung Bases: Included extent of the lung bases are clear.. There is healed granulomatous disease Hepatobiliary: The liver has a normal size with a smooth surface. No gallstones Pancreas: The pancreas is normal. Spleen: The spleen is not enlarged. Adrenals: The adrenal glands are normal. Kidneys, Ureters, & Bladder: Both kidneys have a normal size and morphology. There is no hydronephro sis. Both ureters have a normal course and caliber and the urinary bladder a normal morphology and un iform wall thickness. No ureteral or bladder calculi are identified. Gastrointestinal: The stomach and small bowel are normal with no obstruction or inflammation. The tabby endix is visualized and appears normal. There is sigmoid: diverticulosis no evidence of diverticuliti s Reproductive Organs: Unremarkable Lymphatic System: There is no adenopathy within the abdomen or pelvis. Vasculature: Normal caliber abdominal aorta Peritoneum: No free fluid, free air, or inflammation Abdominal wall & Musculoskeletal: No suspicious bone lesions. Assessment of the solid organs, soft tissues, and vascular structures is overall limited on noncontra st imaging, IMPRESSION: No acute abdominal or pelvic disease process. There is sigmoid colon diverticulosis without evidence of diverticulitis Dictated by: Mary Morales DO on 11/26/2019 10:41 PM. .
[2019-11-26] MEDS ORDERED: HYDROCODONE/APAP 5/325MG TABLET PO ONE (22:52)
== END 2019-11-26 23:07 | disposition home or self-care (01) ==
LOC: ER 20:30
DX: K92.2 Gastrointestinal hemorrhage, unspecified (principal); R05 Cough; R07.81 Pleurodynia; R19.5 Other fecal abnormalities; I10 Essential (primary) hypertension; Z87.891 Personal history of nicotine dependence
CPT/HCPCS: 71046; 74176; 80053; 84484; 85025; 85610; 85730; 93005; 93010; 96374; 99284; C9113